=== PATIENT | male | born 1990 | race Caucasian/White ===

== ENCOUNTER 2025-09-27 21:01 | Emergency (ER) | payer OTHER ==
[~2025-09-27] VITALS: Ht 162.6 cm; Wt 83.2 kg
[2025-09-27 21:20] VITALS: BP 138/77; PULSE 86; RESP 14; TEMP 97.8; O2SAT 100
== END 2025-09-28 01:09 | disposition left against medical advice (07) ==
LOC: EMS 21:01
DX: M79.672 Pain in left foot (principal); Z53.21 Procedure and treatment not carried out due to patient leaving prior to being seen by health care provider
CPT/HCPCS: 99281; 73130-TC; 73140-TC; Z7502